=== PATIENT | female | born 1935 | race Caucasian/White ===

== ENCOUNTER → 2017-06-21 | Day surgery (SDC) | payer OTHER ==
[~2017-06-21] VITALS: Ht 162.6 cm; Wt 47.0 kg
[2017-06-21] VITALS (7 sets, daily range): BP systolic 148–167; BP diastolic 65–87; PULSE 62–74; TEMP 36.4–36.7; O2SAT 94–100; Ht 162.6 cm; Wt 47.0 kg
[~2017-06-21] MED LIST: ALBINS/ INH; ALBUAER INH; ASCO1CAP3 PO; ASMIN/30; ASMTWH INH; BIOF500C2 PO; CALC500C70 PO; CALC600T9 PEG; CALCIUM CHLORIDE PO; CALCTAB5 PO; DEXTROSE 5% 1000ML 1,000 ML IV SCH; DOXY100C76 PO; DXY100 PO; FERR1TAB13 PO; FERR325T5 PEG; FRRS300 PO; FSMD/70 PO; LEVA45AE; LEVA45AE INH; LEVALBUTEROL 1.25MG/3ML NEB INH ONE; LEVO25TA PO; LEVO75TA33 PO; LEVO75TA5 PO; LIDOCAINE HCL 2% LOCAL 50ML VIAL INSTIL ONE; LIDOCAINE VISCOUS 2% 100ML TOP ONE; MAGN1CAP2 PO; MAGN400T6 PO; MIDAZOLAM HCL 5 MG/ML 1 ML VIAL IV ONE; MULT-845 PO; MULT-884 PEG; MULTCHW PO; NURSING VERBAL MED ORDER ONE; OMEG10007 PO; OMEG12006 PO; OXYMETAZOLINE HCL 0.05% NA SPR 15 ML BTL ONE; PRD/25 PO; PRED-301 PO; SALINE NEB; SYMIN160 INH; VNTHFA/IN; gentamicin; gentamicin PO; levothyroxine PO
--- NOTE | 2017-06-21 07:28 | History & Physical Bridge Note ---
H&P Re-Evaluation Bridge Note: I have examined the patient, reviewed the History & Physical and in the interval since the performance of the History & Physical I have noted the following changes of clinical significance: No changes noted
--- NOTE | 2017-06-21 07:29 | Pre Sedation Assessment ---
Pre Sedation Assessment General Date of Sedation: Jun 21, 2017. Pre-Sedation Airway Assessment Smoking Status: Never Smoker Mallampati Classification: Class II Notes The planned sedation has been discussed with the patient. Informed Consent was obtained. I have identified the patient, determined the appropriateness of sedation and have assessed the patient immediately prior to the procedure. All medicine(s) and interventions are by my order.
--- NOTE | 2017-06-21 10:30 | [facility] Operative Report ---
Operative Report Operative Date Jun 21, 2017. Pre-Operative Diagnosis CHRONIC BRONCHITIS Post-Operative Diagnosis SAME Procedure(s) Performed BRONCHOSCOPY Surgeon DR MCDUFFIE Estimated Blood Loss 0 Findings Chronic mucopurulent bronchitis Specimens RIGHT LUNG AND LEFT LUNG WASHING Complication(s) None Disposition I attest to the content of the Intraoperative Record and any orders documented therein. Any exceptions are noted below.
--- NOTE | 2017-06-21 10:32 | Post Sedation Assessment ---
Post Sedation Assessment General Date of Sedation Jun 21, 2017. Vital Signs: Vital Signs Past 12 Hours Date Time Temp Pulse Resp B/P (MAP) Pulse Ox O2 Delivery O2 Flow Rate FiO2 06/21/17 10:20 66 21 145/80 98 Oxymask 6 06/21/17 10:15 77 16 174/92 100 Oxymask 6 06/21/17 10:10 75 18 180/101 100 Oxymask 6 06/21/17 10:05 67 18 160/88 100 Oxymask 6 06/21/17 10:00 70 20 162/82 100 Oxymask 6 06/21/17 09:25 36.7 70 20 150/77 (101) 97 Room Air Post Procedure Recovery Score Activity: (2) Moves 4 extremities * Respiration: (2) Deep breath/cough Circulation: (2) +/-20% PreAnes Value Consciousness: (2) Fully Awake Oxygen Saturation: (1) O2 needed for >90% Post Anesthesia Score: 9 Discharge Sedation Level of Care: Fast Track Phase II Post Sedation Plan On clinical assessment, the patient appears to have tolerated the sedation without complications. Patient is recovering as anticipated. Patient will continue to be monitored by nursing and may be discharged when sedation discharge criteria are met per below protocol. Upon Completions of procedure and additional 15 minutes continue every 5 minute vital signs and the P.A.R. score; then discharge to a Phase I or Fast Track to Phase II per the following guidelines: * Discharge Patient to appropriate Phase II area if PAR is 8 or greater or return to pre- procedure baseline. The post - procedure orders will be as directed. * If PAR score is less than 8 or not return to pre-procedure baseline then patient will follow Phase I monitoring till PAR is reached for Phase II. The Phase I may be done in procedure room or may call to secure a Phase I area. * If naloxone or flumazenil are used for reversal, hold in Phase I for an additional 60 -120 minutes before discharge to Phase II. Please call the Sedation Physician to re-evaluate and complete post-note for discharge to Phase II area. Do NOT discharge from procedure sedation or Phase 1 until post- sedation evaluation note is complete by procedure /sedation MD Sedation Discharge Instructions to be given to the patient at discharge to home.
--- NOTE | 2017-06-21 11:17 | Discharge Instructions ---
Discharge Instructions Date of Service Jun 21, 2017. Admission Reason for Admission: Chronic Bronchitis,Bronchiectisis,Hx Pseudmamas Discharge Discharge Diagnosis / Problem: Chronic Bronchiectasis w mucoid impaction Discharge Goals Goal(s): Therapeutic intervention Activity Recommendations Activity Limitations: resume your previous activity Lifting Limitations: none Exercise/Sports Limitations: none May Resume Sexual Activity: when tolerated Shower/Bathe: no limitations Driving or Machine Use: resume 1 day after discharge None . Instructions / Follow-Up Instructions / Follow-Up ACTIVITY RECOMMENDATIONS: * Rest today, resume normal activity tomorrow. * Do not drive today. SPECIAL CARE INSTRUCTIONS: * Call your physician if you experience any chest or shoulder pain, fever, coughing, spitting up blood (more than 2 teaspoons) or excessive shortness of breath. * Remove dressing from IV site (where needle was placed into the vein) after 2 hours. Apply a warm, moist compress to site if irritation occurs. Call physician if site becomes red or painful to touch. FOLLOW UP VISIT: * Keep any scheduled doctor appointments. Current Hospital Diet Patient's current hospital diet: regular Discharge Diet Recommended Diet: Regular Diet Fluid Restriction: None Procedures Procedures Performed: BRONCHOSCOPY Pending Studies Studies pending at discharge: no Medical Emergencies . Who to Call and When: Medical Emergencies: If at any time you feel your situation is an emergency, please call 911 immediately. . Non-Emergent Contact Non-Emergency issues call your: [facility] Call Non-Emergent contact if: temperature is above 101 . . "Provider Documentation" section prepared by Jourdan Pradhan. .
--- NOTE | 2017-06-21 12:15 | OPERATIVE REPORT ---
DATE OF OPERATION: 06/21/2017 PROCEDURE: Fiberoptic bronchoscopy with BAL. INDICATIONS: Chronic bronchiectasis with mucoid impaction and chronic Pseudomonas aeruginosa colonization. ANESTHESIA PREOPERATIVELY: None. ANESTHESIA DURING PROCEDURE: 3 mg IV Versed. No fentanyl. DESCRIPTION OF PROCEDURE: The procedure was started at 10:05 and completed at 10:15. Fiberoptic bronchoscope was inserted into the left naris with minimal difficulty and passed to the level of the true vocal cords. The cords appeared to approximate normally with phonation without evidence of lesions or paralysis. The scope was then introduced in the trachea and right and left tracheobronchial tree. The jose was sharp. Copious mucopurulent secretion was seen throughout the right and left tracheobronchial tree. The right upper lobe, the apical posterior and anterior segments, bronchus intermedius, right middle lobe, the medial lateral segments and all basilar segments of the right lower lobe were found to be free of endobronchial lesions. The right lower lobe was virtually occluded with thick mucoviscous secretion and was lavaged until clear. Left tracheobronchial tree was explored and no endobronchial lesion seen. Left upper lobe, lingular subdivision and left lower lobe were free of endobronchial lesions down to subsegmental bronchi with once again a copious amount of mucopurulent and mucoviscous secretion lavaged from all lobar segments until clear. Changes of chronic inflammatory mucosa were seen with bronchial crypts and clefts seen throughout the left tracheobronchial tree. The procedure was terminated. No biopsies or brushings were obtained. The patient was given a nebulizer treatment with Xopenex 1.25 mg, then transferred to the medical treatment unit hemodynamically stable, no signs of respiratory compromise. We will await microbiological and cytologic examination of the bronchial washings. I attest to the content of the Intraoperative Record and any orders documented therein. Any exception s are noted below.
[2017-06-23 15:42] LABS: HERPES SIMPLEX VIRUS CULT NOT ISOLATED (NOT ISOLATED)
== END | disposition home or self-care (01) ==
LOC: C.ACU 08:07
PROVIDERS: ATTEND Internal Medicine Pulmonary Disease
DX: J42 Unspecified chronic bronchitis (principal); B44.81 Allergic bronchopulmonary aspergillosis; J47.9 Bronchiectasis, uncomplicated; J32.9 Chronic sinusitis, unspecified; A49.02 Methicillin resistant Staphylococcus aureus infection, unspecified site; A49.8 Other bacterial infections of unspecified site; J30.0 Vasomotor rhinitis; E03.9 Hypothyroidism, unspecified; M81.0 Age-related osteoporosis without current pathological fracture; Z87.01 Personal history of pneumonia (recurrent); Z90.89 Acquired absence of other organs; Z98.49 Cataract extraction status, unspecified eye; Z82.49 Family history of ischemic heart disease and other diseases of the circulatory system; Z83.6 Family history of other diseases of the respiratory system; Z80.0 Family history of malignant neoplasm of digestive organs; Z88.8 Allergy status to other drugs, medicaments and biological substances